=== PATIENT | female | born 1990 | race Caucasian/White ===

== ENCOUNTER 2019-11-28 15:32 | Outpatient (CLI) | payer MEDICAID ==
[2019-11-28 19:20] LABS: THYROID STIMULATING HORMONE 2.64 uIU/mL (0.34-5.60)
[2019-11-28 19:47] LABS: HB2 TOTAL 12.5 g/dL; HEMOGLOBIN A1C 0.54 g/dL; HEMOGLOBIN A1C % 6.1 % (4.6-6.2)
[2019-11-28 19:48] LABS: FOLLICLE STIMULATING HORMONE 6.03 mIU/mL; LUTEINIZING HORMONE 8.81 mIU/mL
== END 2019-11-28 23:59 | disposition home or self-care (01) ==
LOC: LAB.WCP 15:32
PROVIDERS: ATTEND Obstetrics & Gynecology
DX: N91.2 Amenorrhea, unspecified (principal)
CPT/HCPCS: 36415; 83001; 83002; 83036; 84443